=== PATIENT | female | born 1970 | race Caucasian/White ===

== ENCOUNTER 2017-09-19 08:46 | Emergency (ER) | payer OTHER ==
[~2017-09-19] VITALS: Ht 162.6 cm; Wt 107.0 kg
[~2017-09-19 08:46] MED LIST: CARAFATE100 MG/ML PO; PROTONIX40 MG PO
[2017-09-19 09:56] LABS: HEMATOCRIT 40.5 % (36.0-46.0); HEMOGLOBIN 14.1 G/DL (11.9-15.5); MCH 29.4 PG (29.0-34.0); MCHC 34.8 G/DL (30.0-36.0); MCV 84.6 FL (83-99); PLATELET COUNT 226 K/uL (156-360); RBC DIS.WIDTH-CV 12.5 % (11.8-14.6); RBC DIS.WIDTH-SD 38.4 % (39-53); RED BLOOD COUNT 4.79 M/uL (3.80-5.20); WHITE BLOOD COUNT 8.5 K/uL (4.1-10.2)
[2017-09-19 10:07] LABS: ALBUMIN 4.2 g/dL (3.2-4.8); CHLORIDE 110 mEq/L (99-109); POTASSIUM 4.2 mEq/L (3.7-5.4); SODIUM 140 mEq/L (136-147)
[2017-09-19 10:10] LABS: GLUCOSE 122 mg/dL (70-99); TOTAL PROTEIN 6.7 g/dL (6.4-8.3)
[2017-09-19 10:12] LABS: TOTAL BILIRUBIN 1.3 mg/dL (0.0-1.0)
[2017-09-19 10:13] LABS: ALKALINE PHOSPHATASE 109 IU/L (3-129); CREATININE 0.9 mg/dL (0.6-1.3); GFR ESTIMATE (CALCULATED) > 59 mL/min/
[2017-09-19 10:14] LABS: UREA NITROGEN (BUN) 10 mg/dL (9-23)
[2017-09-19 10:15] LABS: AST (GOT) 404 IU/L (2-34)
[2017-09-19 10:16] LABS: ALT (GPT) 200 IU/L (3-49)
[2017-09-19 10:17] LABS: LIPASE 20 U/L (1.0-51.0)
[2017-09-19 11:23] LABS: APPEARANCE SL.HAZY ((CLEAR)); BILIRUBIN NEGATIVE; BLOOD NEGATIVE; COLOR YELLOW ((YELLOW)); GLUCOSE (STRIP) NEGATIVE; KETONES 5; LEUKOCYTES TRACE; NITRITE NEGATIVE; PROTEIN (STRIP) NEGATIVE
[2017-09-19 11:29] LABS: BACTERIA RARE /HPF; EPITHELIAL CELLS 2+ /HPF; MUCUS TRACE /LPF; RED BLOOD CELLS 0-5 /HPF (0-5); WHITE BLOOD CELLS 0-5 /HPF (0-5)
[2017-09-19 13:26] VITALS: BP 114/90
== END 2017-09-19 14:02 | disposition designated cancer center or children's hospital, planned readmission (85) ==
LOC: EME 08:46
PROVIDERS: Nurse Practitioner Family
DX: K80.70 Calculus of gallbladder and bile duct without cholecystitis without obstruction (principal); R74.0 Nonspecific elevation of levels of transaminase and lactic acid dehydrogenase [LDH]; F32.9 Major depressive disorder, single episode, unspecified; F41.9 Anxiety disorder, unspecified
CPT/HCPCS: 76705; 80053; 81003; 83690; 85027; 93005; 99281; 99285; J1885; J3010; J7030